=== PATIENT | male | born 1980 | race American Indian/Alaskan Native ===

== ENCOUNTER 2020-12-03 19:07 | Emergency (ER) | payer OTHER ==
[2020-12-03 21:10] VITALS: BP 152/108
--- NOTE | 2020-12-03 21:19 | Emergency Department Report ---
ED Allergic Reaction HPI - General Chief complaint: Allergic Reaction Stated complaint: ALLERGIC REATION Source: patient Mode of arrival: Ambulatory Limitations: No Limitations - History of Present Illness MD Complaint: allergic reaction (to a herrera dye used yesterday, no has itching, swelling, discharge and redness to the dye area. ) -: Gradual Symptoms: itching, facial swelling Severity: mild Treatment Prior to Arrival: none Previous Allergy History: none - Related Data Previous Rx's Medication Instructions Recorded Last Taken Type Mometasone 0.1% (Nf) [Elocon (Nf)] 1 applicatio TP QDAY #1 tube 12/03/20 Unknown Rx Mupirocin [Bactroban 2%] 15 applic TP TID #15 gm 12/03/20 Unknown Rx hydrOXYzine HCL [Atarax] 25 mg PO Q6HR PRN #20 tablet 12/03/20 Unknown Rx predniSONE [Deltasone] 50 mg PO QDAY #5 tab 12/03/20 Unknown Rx Allergies Allergy/AdvReac Type Severity Reaction Status Date / Time No Known Allergies Allergy Unverified 12/03/20 21:02 ED Review of Systems ROS: Stated complaint: ALLERGIC REATION Other details as noted in HPI Comment: All other systems reviewed and negative ED Past Medical Hx - Past Medical History Previous Medical History?: No - Surgical History Past Surgical History?: No - Medications Home Medications: Home Medications Medication Instructions Recorded Confirmed Last Taken Type Mometasone 0.1% (Nf) [Elocon (Nf)] 1 applicatio TP QDAY #1 tube 12/03/20 Unknown Rx Mupirocin [Bactroban 2%] 15 applic TP TID #15 gm 12/03/20 Unknown Rx hydrOXYzine HCL [Atarax] 25 mg PO Q6HR PRN #20 tablet 12/03/20 Unknown Rx predniSONE [Deltasone] 50 mg PO QDAY #5 tab 12/03/20 Unknown Rx ED Physical Exam - General Limitations: No Limitations General appearance: alert, in no apparent distress - Head Head exam: Present: atraumatic, normocephalic, other - Expanded Head Exam Expanded 1 - reaction area 2 - reaction area. no angio edema. airway patent - Eye Eye exam: Present: normal appearance - ENT ENT exam: Present: mucous membranes moist - Neck Neck exam: Present: normal inspection - Respiratory Respiratory exam: Present: normal lung sounds bilaterally. Absent: respiratory distress - Cardiovascular Cardiovascular Exam: Present: regular rate, normal rhythm. Absent: systolic murmur, diastolic murmur, rubs, gallop - GI/Abdominal GI/Abdominal exam: Present: soft, normal bowel sounds - Rectal Rectal exam: Present: deferred - Extremities Exam Extremities exam: Present: normal inspection - Back Exam Back exam: Present: normal inspection - Neurological Exam Neurological exam: Present: alert, oriented X3 - Psychiatric Psychiatric exam: Present: normal affect, normal mood - Skin Skin exam: Present: warm, dry, urticaria, other (Redness, blistering some clear weepage,). Absent: rash ED Course Vital Signs 12/03/20 21:04 Temperature 97.9 F Pulse Rate 59 L Respiratory 18 Rate Blood Pressure 152/108 O2 Sat by Pulse 99 Oximetry Critical care attestation.: If time is entered above; I have spent that time in minutes in the direct care of this critically ill patient, excluding procedure time. ED Disposition Clinical Impression: Contact dermatitis, Allergic reaction Disposition: 01 HOME / SELF CARE / HOMELESS Is pt being admited?: No Does the pt Need Aspirin: No Condition: Stable Instructions: Allergies, Adult, [id number], Contact Dermatitis, [id number] Prescriptions: hydrOXYzine HCL [Atarax] 25 mg PO Q6HR PRN #20 tablet PRN Reason: Itching Mupirocin [Bactroban 2%] 15 applic TP TID #15 gm predniSONE [Deltasone] 50 mg PO QDAY #5 tab Mometasone 0.1% (Nf) [Elocon (Nf)] 1 applicatio TP QDAY #1 tube Referrals: [facility] [Provider Group] - 3-5 Days
== END 2020-12-03 22:36 | disposition home or self-care (01) ==
LOC: ED 19:07
DX: T78.40XA Allergy, unspecified, initial encounter (principal); Z79.899 Other long term (current) drug therapy; X58.XXXA Exposure to other specified factors, initial encounter
CPT/HCPCS: 99281